=== PATIENT | female | born 1985 | race Caucasian/White ===

== ENCOUNTER 2016-11-25 09:49 | Emergency (ER) | payer BC, OTHER ==
[~2016-11-25] VITALS: Ht 165.1 cm; Wt 75.3 kg
--- NOTE | ~2016-11-25 | EKG ---
[place] [address] [facility] [place] [address] ELECTROCARDIOGRAM REPORT Name: SYLVIAAKHILEduar OLIVER Room #: [facility] [id number] Admission: 11/25/16 Attend Phys: Discharge: Date of : 87 Report #: [id number] THIS REPORT FOR: //name// [facility] ED Test Date: 2016-11-25 Test Time: 10:08:04 Pat Name: AKHIL WARD Department: Room: Gender: F Durability Technician: Wade ANN : 1985 Requested By: Gisselle Woodson Order Number: [id number] MD: Huey Brooks Measurements Intervals Orondo Rate: 92 P: 45 MS: 172 QRS: 12 QRSD: 76 T: 36 QT: 380 QTc: 471 Interpretive Statements Sinus rhythm Abnormal Q suggests anterior infarct No previous ECG available for comparison Electronically Signed On 11-25-2016 15:32:00 CDT by Huey Brooks [email or web address] <ELECTRONICALLY SIGNED> By: Huey Brooks MD 11/25/16 1532 [id number] MD JOSÉ MANUEL Brady
--- NOTE | ~2016-11-25 | 2DMMODE ---
[facility] [address] [place] [address] 2 D/M-MODE ECHOCARDIOGRAM Name: AKHIL WARD Room #: DEP Meena#: [id number] Admission: 11/25/16 Attend Phys: Discharge: 11/25/16 Date of : 87 Date of Service: 11/27/16 0957 Report #: [id number] THIS REPORT FOR: //name// APPROVED REPORT Study performed: 11/25/2016 10:12:14 EXAM: Comprehensive 2D, Doppler, and color-flow Echocardiogram Patient Location: ER Blood Pressure: 164/1003 mmHg HR: 93 bpm Other Information Study Quality: Good Indications Dyspnea Hypertension/HDD 2D Dimensions RVDd: 38.02 mm LVEF(%): 40.66 (>50%) IVSd: 11.43 (7-11mm) LVOT Diam: 21.47 (18-24mm) LVDd: 48.87 mm PWd: 10.92 (7-11mm) LVDs: 39.15 (25-40mm) IVC: 25.00 mm Aortic Root: 31.29 mm Ornelas's LVEF: 40.66 % Volumes Left Atrial Volume (Systole) Single Plane 4CH: 68.90 mL Single Plane 2CH: 56.26 mL LA ESV Index: 36.00 mL/m2 Aortic Valve AoV Peak Edison.: 1.63 m/s AO Peak Gr.: 10.68 mmHg LV Max P.24 mmHg LV Max: 1.03 m/s Mitral Valve MV PHT: 45.91 ms MV E Max Edison.: 1.23 m/s E/A Ratio: 1.0 MV A Edison.: 1.19 m/s MV Decel. Time: 158.31 ms [facility] [place] [address] 2 D/M-MODE ECHOCARDIOGRAM Name: AKHIL WARD Room #: [facility]P [facility] [id number] Admission: 11/25/16 Attend Phys: Discharge: 11/25/16 Date of : 87 Date of Service: 11/27/16 0957 Report #: [id number] Pulmonary Valve PV Peak Edison.: 1.10 m/s PV Peak Gr.: 4.88 mmHg Tricuspid Valve TR Peak Edison.: 2.56 m/s RAP Estimate: 10.00 mmHg TR Peak Gr.: 26.29 mmHg Left Ventricle The left ventricle is normal size. There is normal LV segmental wall motion. There is normal left ventricular wall thickness. Left ventricular systolic function is normal. The left ventricular ejection fraction is within the normal range. LVEF is 60-65%. The left ventricular diastolic function is normal. Right Ventricle The right ventricle is normal size. The right ventricular systolic function is normal. Atria The left atrium size is normal. The right atrium size is normal. Aortic Valve The aortic valve is normal in structure. No aortic regurgitation is present. There is no aortic valvular stenosis. Mitral Valve The mitral valve is normal in structure. There is no mitral valve regurgitation noted. Tricuspid Valve The tricuspid valve is normal in structure. There is trace tricuspid regurgitation. The right atrial pressure is estimated at 10 mmHg. There is mild pulmonary hypertension. Pulmonic Valve The pulmonary valve is normal in structure. There is no pulmonic valvular regurgitation. Great Vessels The aortic root is normal in size. Pericardium Trace anterior pericardial effusion. [facility] [place] [address] 2 D/M-MODE ECHOCARDIOGRAM Name: SYLVIAAKHIL Room #: DEP Meena#: [id number] Admission: 11/25/16 Attend Phys: Discharge: 11/25/16 Date of : 87 Date of Service: 11/27/16 0957 Report #: [id number] <Conclusion> 1. Normal echocardiogram with Doppler. EF 60-65% 2. Pulmonary artery pressure could not be reliably ascertained 3. No pericardial effusion <ELECTRONICALLY SIGNED> By: Lucian Mckeon MD, [facility] 11/27/16 0957 0957 Lucian Mckeon MD, FACC /INF
[~2016-11-25 09:49] MED LIST: ENBREL; YASMIN 28 TABL1 EACH PO
[2016-11-25] MEDS ORDERED: BYSTOLIC 5 MG5 MG PO (09:57)
[2016-11-25] MEDS ORDERED: HYDROCODONE-AP1 EAC6 PO (09:57)
[2016-11-25] MEDS ORDERED: LASIX 40 MG TAB40 M2 PO (09:58)
[2016-11-25] MEDS ORDERED: TRINATE TABLET1 TAB PO (09:58)
[2016-11-25 10:25] LABS: ABSOLUTE NEUTROPHILS 6.3 thou/uL (1.4-8.2); BASOPHILS 0.4 % (0.0-2.0); HEMATOCRIT 23.4 % (37.0-47.0); HEMOGLOBIN 7.6 gm/dL (12.0-15.0); LYMPHOCYTES 19.4 % (24.0-44.0); MCH 20.3 pg (26.0-34.0); MCHC 32.7 g/dL (28.0-37.0); MONOCYTES 9.2 % (1.0-8.0); PLATELET COUNT 310 thou/uL (150-400); RBC 3.78 mil/uL (4.20-5.00); RDW 19.5 % (10.5-14.5); WBC 9.2 thou/uL (4.0-11.0)
[2016-11-25 10:26] LABS: MANUAL DIFF NO
[2016-11-25 10:36] LABS: ANION GAP 9 mmol/L (7-16); BUN 14 mg/dL (7-18); CALCIUM 8.9 mg/dL (8.5-10.1); CHLORIDE 101 mmol/L (98-107); CO2 26 mmol/L (21-32); CREATININE 0.6 mg/dL (0.6-1.3); GLUCOSE 87 mg/dL (70-99); POTASSIUM 4.1 mmol/L (3.5-5.1); SODIUM 136 mmol/L (136-145)
[2016-11-25 10:40] LABS: ALBUMIN 2.5 g/dL (3.4-5.0); ALKALINE PHOSPHATASE 147 U/L (46-116); DIRECT BILIRUBIN < 0.1 mg/dL (<0.1-0.3); SGOT 36 U/L (15-37); SGPT 31 U/L (30-65); TOTAL BILIRUBIN 0.3 mg/dL (<0.1-1.0); TOTAL PROTEIN 6.7 g/dL (6.4-8.2); URIC ACID* 7.9 mg/dL (2.6-7.2)
[2016-11-25 10:58] LABS: ANISOCYTOSIS 2+; MICROCYTES 3+
[2016-11-25 10:59] LABS: HYPOCHROMASIA 3+; OVALOCYTES FEW; POLYCHROMASIA SLIGHT
[2016-11-25] MEDS ORDERED: NORCO 5-325 TA1 EACH PO (11:13)
[2016-11-25 11:17] VITALS: BP 150/87
== END 2016-11-25 17:52 | disposition home or self-care (01) ==
LOC: ER 09:49
PROVIDERS: Emergency Medicine
DX: O90.81 Anemia of the puerperium (principal); O90.89 Other complications of the puerperium, not elsewhere classified; M06.9 Rheumatoid arthritis, unspecified

== ENCOUNTER → 2018-07-08 | Outpatient (CLI) | payer BC, OTHER ==
[~2018-07-08] VITALS: Ht 165.1 cm; Wt 61.4 kg
[~2018-07-08] MED LIST changes: +BYSTOLIC 5 MG5 MG PO; +CIPRO500 MG PO; +FAMCICLOVIR250 MG PO; +FLAGYL500 MG PO; +HYDROCODONE-AP1 EAC6 PO; +LASIX 40 MG TAB40 M2 PO; +MIRALAX17 GM PO; +NORCO 5-325 TA1 EACH PO; +TRINATE TABLET1 TAB PO
[2018-07-08 10:13] VITALS: BP 114/74
== END ==
LOC: SEN 09:04
DX: B08.4 Enteroviral vesicular stomatitis with exanthem (principal); D56.1 Beta thalassemia

== ENCOUNTER → 2020-02-25 | Outpatient (CLI) | payer BC, OTHER | LOC: LAB 10:20 | PROVIDERS: ATTEND Internal Medicine Cardiovascular Disease | DX: U07.1 COVID-19 (principal); Z01.818 Encounter for other preprocedural examination ==